=== PATIENT | male | born 1995 | race Caucasian/White ===

== ENCOUNTER 2021-11-09 11:11 | Emergency (ER) | payer OTHER ==
[2021-11-09 13:56] LABS: BASOPHIL 0.5 % (0-2); EOSINOPHIL 2.5 % (0-5); HCT 47.2 % (42.0-52.0); HGB 16.3 g/dl (13.2-18.0); LYMPHOCYTE 23.8 % (15-48); MCH 35.1 pg (25.0-31.0); MCHC 34.5 g/dL (32.0-36.0); MCV 101.7 fL (78.0-100.0); MONOCYTE 6.5 % (0-12); MPV 9.4 fL (6.0-9.5); NEUTROPHIL 66.4 % (41-80); NRBC 0; PLT 341 K/uL (150-400); RBC 4.64 M/uL (4.70-6.00); RDW 11.2 % (11.5-14.0); WBC 10.3 K/uL (4.0-10.5)
[2021-11-09 14:14] LABS: ALBUMIN 4.2 g/dL (3.4-5.0); BILIRUBIN - TOTAL 0.5 mg/dL (0.2-1.0); BUN/CREAT RATIO (CALC) 9.4 RATIO; CREATININE 0.96 mg/dL (0.67-1.17); GLOBULIN (CALCULATION) 3.4 g/dL; MAGNESIUM 2.1 mg/dL (1.8-2.4); POTASSIUM 4.4 mmol/L (3.5-5.1); TOTAL PROTEIN 7.6 g/dL (6.4-8.2)
== END 2021-11-09 14:38 | disposition home or self-care (01) ==
LOC: FER 11:11
PROVIDERS: Physician Assistant
DX: M79.602 Pain in left arm (principal); F17.210 Nicotine dependence, cigarettes, uncomplicated; Z28.310 Unvaccinated for COVID-19
CPT/HCPCS: 36415; 80053; 83735; 84484; 85025; 93005